=== PATIENT | female | born 1985 | race Caucasian/White ===

== ENCOUNTER 2017-06-29 13:13 | Emergency (ER) | payer MEDICAID ==
[~2017-06-29] VITALS: Ht 170.2 cm; Wt 73.6 kg
[2017-06-29 14:25] VITALS: BP 134/86
== END 2017-06-29 14:53 | disposition home or self-care (01) ==
LOC: EMS 13:14
DX: R51 Headache (principal); R03.0 Elevated blood-pressure reading, without diagnosis of hypertension
CPT/HCPCS: 99282